=== PATIENT | male | born 1950 | race Caucasian/White ===

== ENCOUNTER → 2016-06-03 | Outpatient (CLI) | payer OTHER | LOC: BHFA 09:30 | PROVIDERS: ATTEND Internal Medicine Cardiovascular Disease | DX: R07.9 Chest pain, unspecified (principal); I25.10 Atherosclerotic heart disease of native coronary artery without angina pectoris | CPT/HCPCS: 78452; 93017; A9500 ==

== ENCOUNTER → 2016-08-16 | Outpatient (CLI) | payer OTHER | LOC: FIMAGING 09:41 | PROVIDERS: ATTEND Family Medicine | DX: I25.10 Atherosclerotic heart disease of native coronary artery without angina pectoris (principal); Z87.891 Personal history of nicotine dependence ==

== ENCOUNTER → 2017-08-15 | Outpatient (CLI) | payer OTHER | LOC: FIMAGING 11:18 | PROVIDERS: ATTEND Family Medicine | DX: M16.0 Bilateral primary osteoarthritis of hip (principal) ==

== ENCOUNTER 2017-10-10 21:28 | Emergency (ER) | payer OTHER ==
--- NOTE | 2017-10-10 21:53 | EDPHY ---
General Time Seen by Provider: 10/10/17 21:40 Narrative: CHIEF COMPLAINT: Laceration to the left hand HISTORY OF PRESENT ILLNESS: Patient presents with complaints of laceration to the left hand. This happened around 6:45 p.m. Today. He was cleaning dishes in his home. He had a sponge inside the glass when it broke, lacerating the left hand over the back side and into the left index finger. He has had some pain and tingling but no numbness. No difficulty bending or straightening the finger. The concern is for the possibility of glass as well as the bleeding that is not. He went to an urgent care symptom here due to difficulty with hemostasis. No anticoagulants. No other associated complaints or modifying factors. Left hand dominant. TIME OF INJURY: 6:45 p.m. Today TETANUS STATUS: Less than 6 years ago MEDICAL/SURGICAL/SOCIAL HISTORY: Coronary artery disease, hernia, dyslipidemia, prediabetic, low testosterone. Nonsmoker per REVIEW OF SYSTEMS: Ten systems reviewed and are negative unless otherwise noted in the HPI EXAMINATION General Appearance: Alert, no distress Head: normocephalic, atraumatic Cardiovascular: Radial pulses symmetric. There is brisk cap refill the fingers left hand including the injured left index finger. Neurological: A&O, 2 point sensory symmetric, grocery packer and interossei strength symmetric Skin: Warm and dry, no rash. There is a curvilinear laceration on the dorsum of the left hand extending to the radial side of the 2nd metacarpal into the proximal index finger on the dorsum. There is continues venous bleeding but nonpulsatile bleeding. There is no exposure of the extensor apparatus. No foreign body. Extremities: Tenderness over the area the left finger alert and hand laceration. There is full flexion extension of the finger without deficit. There is brisk cap refill the left index finger. DIFFERENTIAL DIAGNOSES: Including but not limited to laceration, complex laceration, laceration arterial injury, laceration with foreign body, laceration with tendon injury MDM: 9:45 p.m. Laceration to the dorsum of the left hand that extends into the radial aspect of the 2nd metacarpal and just across the MCP joint. There is venous bleeding noted from the site but I do not appreciate any pulsatile bleeding. He is neurovascular intact distal to this with brisk cap refill in the affected finger. This injury occurred approximately 3 hr ago. I have anesthetize the area. We will proceed with x-ray irrigation re-evaluation 10:28 p.m. X-ray of the hand is negative for any foreign body. The area has been anesthetize and we will irrigate and closed. 11:25 p.m. Wound has been repaired with excellent hemostasis and I have monitored him for 15 min. There is no bleeding. There is good signs of perfusion to the finger with brisk cap refill. He still numb at the site of injection but neurovascular intact distal to this. Bandage will be placed. He will be splinted temporarily. We have started prophylactic Keflex here. I will refer him to hand surgeon. I would like him to be seen on Friday for wound check without fail, whether by hand surgeon or here. We discussed ED precautions for numbness, tingling, weakness, cyanosis or pallor. We also discussed ED precautions for fever, warmth, redness or purulence. He is comfortable this plan and discharged home stable condition. PROCEDURE: Laceration repair Consent: Verbal Location: Dorsum of the left hand extending to the left index finger proximally Length of repair: 5 cm, curvilinear Complexity: Complex Layer involvement: Single Anesthesia: Local per 1% lidocaine without epinephrine. 7 mL Irrigation: Extensive Debridement: None Procedure description: Following good anesthesia, the wound was copiously irrigated. Wound bed was explored with a sterile glove, and there is no foreign body noted. There was exposure of the extensor tendon without any compromise of the tendon itself. This was visualized directly with sterile glove with extension of the finger. There was mild pulsatile bleeding from the capillary bed that was easily hemostasis. Wound borders were approximated well with good hemostasis. Tolerated well without complication. Good hemostasis following the procedure. Suture/Staple material: 5-0 Prolene, 13 simple interrupted sutures Wound care: Routine as discussed Suture/Staple removal: 10 Days SUPERVISION: This patient was independently evaluated without direct involvement of or examination by the attending physician. ED Precautions: Worsening pain. Erythema, edema, cyanosis, pallor, paresthesia or anesthesia. - Diagnostics Imaging Results: Imaging Impressions Hand X-Ray 10/10/17 21:53 Impression: No radiopaque glass identified. Repeat examination with the managing material removed might be helpful. - History Smoking Status: Former smoker - Objective Vital Signs: Initial Vital Signs Temperature (C) 98.2 F 10/10/17 21:30 Heart Rate 56 L 10/10/17 21:30 Respiratory Rate 16 10/10/17 21:30 Blood Pressure 163/94 H 10/10/17 21:30 O2 Sat (%) 94 10/10/17 21:30 O2 Delivery Mode Room Air Allergies/Adverse Reactions: No Known Allergies Allergy (Unverified 10/10/17 21:34) Home Medications: Medication Instructions Recorded Cephalexin [Keflex (*)] 500 mg PO QID #24 cap 10/10/17 Medications Given: Discontinued Medications Cephalexin (Keflex 500 Mg Prepack#4) 1 btl TAKEHOME EDNOW ONE PRN Reason: Protocol Stop: 10/10/17 23:14 Last Admin: 10/10/17 23:25 Dose: 1 btl Ibuprofen (Motrin) 600 mg PO EDNOW ONE Stop: 10/10/17 22:40 Last Admin: 10/10/17 22:47 Dose: 600 mg Departure - Departure Disposition: Home, Routine, Self-Care Clinical Impression: Laceration of hand, left, complicated Qualifiers: Encounter type: initial encounter Qualified Code(s): S61.412A - Laceration without foreign body of left hand, initial encounter Laceration of left index finger Qualifiers: Encounter type: initial encounter Damage to nail status: without damage Foreign body presence: without foreign body Qualified Code(s): S61.211A - Laceration without foreign body of left index finger without damage to nail, initial encounter Condition: Good Instructions: Cephalexin (By mouth), Care For Your Stitches (ED), Laceration ( ED) Additional Instructions: 1. Keflex as prescribed to completion 2. Contact hand surgeon on Friday to be seen on Friday or Friday morning the very latest. Return here if you are unable to be seen by Friday. 3. Return to emergency department for any redness, warmth, numbness, tingling, weakness, cyanosis or pallor 4. Ibuprofen 600 mg every 6-8 hours as needed for pain Referrals: Jose G Perez [Primary Care Provider] - As per Instructions Gerhard Romero MD [Medical Doctor] - As per Instructions (To be seen on Friday or Friday at the latest. If you are unable to be seen, please return to emergency department for wound evaluation) Prescriptions: Cephalexin [Keflex (*)] 500 mg PO QID #24 cap
[2017-10-10] MEDS ORDERED: IBUPROFEN 600 MG TAB PO ONE (22:39)
[2017-10-10] MEDS ORDERED: CEPHALEXIN 500MG PREPACK#4 BTL TAKEHOME ONE (23:13)
[2017-10-10 23:51] VITALS: BP 141/85
== END 2017-10-10 23:51 | disposition home or self-care (01) ==
PROC: 0HQGXZZ Repair Left Hand Skin, External Approach (ICD-10-PCS; principal; 2017-10-10)
DX: S61.412A Laceration without foreign body of left hand, initial encounter (principal); S61.211A Laceration without foreign body of left index finger without damage to nail, initial encounter; I25.10 Atherosclerotic heart disease of native coronary artery without angina pectoris; Z87.891 Personal history of nicotine dependence; W25.XXXA Contact with sharp glass, initial encounter; Y99.8 Other external cause status; Y93.G1 Activity, food preparation and clean up

== ENCOUNTER 2017-10-12 12:00 | Emergency (ER) | payer OTHER ==
[2017-10-12 12:11] VITALS: BP 147/75
[2017-10-12] MEDS ORDERED: SULFAMETHOX/TMP 800/160 MG 1 TAB PO ONE (12:57)
--- NOTE | 2017-10-12 12:59 | EDPHY ---
H & P Time Seen by Provider: 10/12/17 12:49 HPI/ROS: CHIEF COMPLAINT: Left hand pain and redness HISTORY OF PRESENT ILLNESS: Patient had laceration on the base of his left index finger was seen here 2 days ago for evaluation and repair. The note was reviewed and says no foreign body or tendon laceration. He presents today with redness just around the wound and some tenderness and pain. He is still wearing a splint. Discussed with PA who sutured him, did not have evidence of tendon laceration or joint capsule involvement at that time. REVIEW OF SYSTEMS: No fevers or chills and no numbness distally. PAST MEDICAL HISTORY: Bypass, coronary disease, appendectomy,"prediabetes" General Appearance: Alert and conversant, cooperative. The incision is clean dry and intact without discharge or pus. No proximal tenderness on the hand and no lymphangitis or red streaking on the forearm. There is pain to palpation just over the MCP joint. Slight erythema around the suture line but not hot to the touch. Normal motor sensory and capillary refill distally. Can flex and extend passively but has pain at the MCP joint with that. Emergency Department course/MDM: Patient presents with slight redness but no warmth, I think that inflammation from the healing process is more likely than acute infection. Recent splint, add Bactrim for staph coverage, Hand surgery close clinical follow-up tomorrow. I think abscess or tenosynovitis or joint infection are all less likely than post procedure inflammation. Smoking Status: Former smoker Constitutional: Initial Vital Signs Temperature (C) 36.4 C 10/12/17 12:09 Heart Rate 54 L 10/12/17 12:09 Respiratory Rate 18 10/12/17 12:09 Blood Pressure 147/75 H 10/12/17 12:09 O2 Sat (%) 92 10/12/17 12:09 O2 Delivery Mode Room Air Allergies/Adverse Reactions: No Known Allergies Allergy (Verified 10/12/17 12:11) Home Medications: Medication Instructions Recorded Cephalexin [Keflex (*)] 500 mg PO QID #24 cap 10/10/17 Sulfamethox/Tmp 800/160 mg 1 tab PO BID@1000,2200 #20 tab 10/12/17 [Bactrim Ds] MDM/Departure - MDM Medications Given: Discontinued Medications Trimethoprim/Sulfamethoxazole (Bactrim Ds) 1 ea PO EDNOW ONE PRN Reason: Protocol Stop: 10/12/17 12:58 Last Admin: 10/12/17 13:04 Dose: 1 ea - Depart Disposition: Home, Routine, Self-Care Clinical Impression: Finger laceration Condition: Good Instructions: Laceration (ED) Prescriptions: Sulfamethox/Tmp 800/160 mg [Bactrim Ds] 1 tab PO BID@1000,2200 #20 tab Referrals: Jose G Perez [Primary Care Provider] - As per Instructions Gerhard Romero MD [Medical Doctor] - 1 day without fail
== END 2017-10-12 13:13 | disposition home or self-care (01) ==
DX: S61.211D Laceration without foreign body of left index finger without damage to nail, subsequent encounter (principal); Z87.891 Personal history of nicotine dependence; X58.XXXD Exposure to other specified factors, subsequent encounter